=== PATIENT | male | born 1960 | race Caucasian/White ===

== ENCOUNTER 2017-06-27 20:35 | Emergency (ER) | payer OTHER ==
[2017-06-27 19:58] VITALS: BMI 25.8
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
[2017-06-27 20:15] VITALS: BP 138/93; RESP 18; TEMP 98.8
[~2017-06-27 20:35] MED LIST: TDAP Vaccine 0.5 mL Syr IM ONE
[2017-06-27 20:50] VITALS: PULSE 99; O2SAT 98
== END 2017-06-27 21:34 | disposition home or self-care (01) ==
LOC: ED 20:35
DX: S50.812A Abrasion of left forearm, initial encounter (principal); X99.1XXA Assault by knife, initial encounter; Y92.009 Unspecified place in unspecified non-institutional (private) residence as the place of occurrence of the external cause